=== PATIENT | male | born 1965 | race Caucasian/White ===

== ENCOUNTER 2018-02-07 13:40 | Day surgery (SDC) | payer OTHER ==
[2018-02-07] MEDS ORDERED: PROPOFOL 20 ML (15:04)
[2018-02-07] MEDS ORDERED: FENTAnyl 50 MCG/ML VIAL (15:04)
[2018-02-07] MEDS ORDERED: MIDAZOLAM 1 MG/ML 2 ML INJ (15:04)
== END 2018-02-07 16:48 | disposition home or self-care (01) ==
LOC: GIL 13:40
DX: R19.5 Other fecal abnormalities (principal); D12.4 Benign neoplasm of descending colon; D12.5 Benign neoplasm of sigmoid colon; D12.3 Benign neoplasm of transverse colon; K29.70 Gastritis, unspecified, without bleeding
CPT/HCPCS: 43239; 88305; 88312